=== PATIENT | female | born 1960 | race Caucasian/White ===

== ENCOUNTER 2016-11-02 09:32 | Emergency (ER) | payer SELFPAY ==
[~2016-11-02] VITALS: Ht 157.5 cm; Wt 54.5 kg
[~2016-11-02 09:32] MED LIST: GABA-531 PO; IBUP-2070 PO
[2016-11-02 10:19] VITALS: BP 148/38
== END 2016-11-02 11:11 | disposition home or self-care (01) ==
LOC: EMS 09:33
DX: S82.832A Other fracture of upper and lower end of left fibula, initial encounter for closed fracture (principal); X58.XXXA Exposure to other specified factors, initial encounter; Y93.89 Activity, other specified; Y92.89 Other specified places as the place of occurrence of the external cause; Y99.8 Other external cause status
CPT/HCPCS: 29515; 99284

== ENCOUNTER 2017-07-09 21:51 | Emergency (ER) | payer MEDICAID, OTHER ==
[~2017-07-09] VITALS: Ht 157.5 cm; Wt 63.2 kg
[2017-07-09] MEDS ORDERED: GABA-531 PO (22:03)
[2017-07-09] MEDS ORDERED: CALC-933 PO (22:03)
[2017-07-09] MEDS ORDERED: ALEN70TA48 PO (22:03)
[2017-07-09] MEDS ORDERED: BUPR150T8 PO (22:03)
[2017-07-10] MEDS ORDERED: MethylPREDNISolone SOD SUCC 125 MG/2 ML VIAL IM ONE
[2017-07-10 00:26] LABS: BASOPHILS # (AUTO) 0.03 K/uL (0.00-0.20); BASOPHILS % (AUTO) 0.4 % (0.0-2.0); EOSINOPHILS # (AUTO) 0.08 K/uL (0.00-0.70); EOSINOPHILS % (AUTO) 1.03 % (1.0-6.0); HEMATOCRIT 34.4 % (36-46); HEMOGLOBIN 11.8 g/dL (12.0-16.0); LYMPHOCYTES # (AUTO) 1.2 K/uL (1.0-4.8); MEAN CORPUSCULAR HEMOGLOBIN 30.9 pg (26.0-34.0); MEAN CORPUSCULAR HGB CONC 34.3 G/dL (31.0-37.0); MEAN CORPUSCULAR VOLUME 90 fL (80-100); MONOCYTES # (AUTO) 0.5 K/uL (0.1-1.0); MONOCYTES % (AUTO) 6.2 % (2.0-9.0); NEUTROPHILS # (AUTO) 5.6 K/uL (1.8-7.7); NEUTROPHILS % (AUTO) 76.4 % (40.0-70.0); PLATELET COUNT (AUTO) 255 K/uL (150-450); RED BLOOD CELL COUNT(AUTO) 3.82 MIL/uL (4.00-5.20); RED CELL DISTRIBUTION WIDTH 13.1 % (11.5-14.5); WHITE BLOOD COUNT (AUTO) 7.3 K/uL (4.5-11.0)
[2017-07-10 00:45] VITALS: BP 145/76
== END 2017-07-10 01:18 | disposition home or self-care (01) ==
LOC: EMS 21:52
DX: M13.0 Polyarthritis, unspecified (principal); M79.89 Other specified soft tissue disorders
CPT/HCPCS: 36415; 73120; 85025; 86140; 96372; 99285; J2930